=== PATIENT | male | born 1990 | race Asian ===

== ENCOUNTER 2016-12-18 12:12 | Emergency (ER) | payer OTHER ==
[~2016-12-18] VITALS: Ht 172.7 cm; Wt 54.7 kg
[2016-12-18 12:14] VITALS: TEMP 36.9; Ht 172.7 cm; Wt 54.7 kg
[2016-12-18 12:32] VITALS: O2SAT 98
[2016-12-18] MEDS ORDERED: METOCLOPRAMIDE HCL INJ 5 MG/ML 2 ML VIAL IV STA (13:29)
[2016-12-18] MEDS ORDERED: MoRPHine SULFATE 4 MG/ML 1 ML CARP\\VIAL IV ONE (13:30)
[2016-12-18] MEDS ORDERED: SODIUM CHLORIDE 0.9% 1000ML 1,000 ML IV ONE (13:30)
[2016-12-18] MEDS ORDERED: DICY20TA35 PO (13:35)
[2016-12-18] MEDS ORDERED: ONDA4TAB10 SL (13:35)
[2016-12-18 13:37] LABS: BASO % 0.3 %; BASO ABS # 0.02 K/uL (0-0.2); COMPLETE YES; EOS % 0.8 %; HEMATOCRIT 44.4 % (42-52); IG% 0.4 %; LYMPH % 16.9 %; LYMPH ABS # 1.35 K/uL (1.2-3.4); MEAN CELL VOLUME 87.2 fL (80-100); MEAN CORPUSCULAR HEMOGLOBIN 30.6 pg (25-34); MEAN CORPUSCULAR HGB CONC 35.1 g/dl (32-36); MONO % 24.2 %; NEUT % 57.4 %; PLATELET COUNT 321 K/uL (130-400); RED BLOOD COUNT 5.09 M/uL (4.7-6.1); WHITE BLOOD COUNT 7.99 K/uL (4.8-10.8)
[2016-12-18 13:44] LABS: BUN/CREATININE RATIO 10.7 (10-20); CALCIUM 9.1 mg/dl (8.5-10.1); POTASSIUM 3.6 mmol/L (3.5-5.1)
[2016-12-18 13:50] LABS: ALB/GLOB RATIO 0.8 (0.9-2)
--- NOTE | 2016-12-18 13:56 | DIAGNOSTIC IMAGING REPORT ---
CHEST ONE VIEW PORTABLE CLINICAL HISTORY: Chest pain, nausea and vomiting. COMPARISON STUDY: No previous studies for comparison. FINDINGS: Lung volumes are normal. Lungs are clear. There is no pneumothorax or pleural effusion. Cardiac size is normal. Mediastinal contours are normal. There is no evidence of pulmonary edema. No pneumomediastinum is identified. IMPRESSION: No acute cardiopulmonary findings. Electronically signed by: Messi Mcdaniel M.D. 12/18/2016 1:55 PM Dictated Date/Time: 12/18/2016 1:55 PM
[2016-12-18 15:36] LABS: URINE APPEARANCE CLEAR (CLEAR); URINE BILIRUBIN NEG (NEG); URINE COLOR YELLOW; URINE NITRITE NEG (NEG); URINE PH 6.5 (4.5-7.5); URINE SPECIFIC GRAVITY 1.002 (1.000-1.030); UROBILINOGEN NEG (NEG); ZZUR CULT IF INDIC CLEAN CATCH NO
[2016-12-18 15:40] LABS: MANUAL MICROSCOPIC REQUIRED? NO; REVIEW REQ? NO
[2016-12-18] MEDS ORDERED: OPTIRAY 320 IV PRN (15:45)
--- NOTE | 2016-12-18 16:16 | DIAGNOSTIC IMAGING REPORT ---
CT ABD/PELVIS IV AND ORAL CONT CLINICAL HISTORY: Lower abdominal pain, nausea, vomiting. COMPARISON STUDY: None. TECHNIQUE: Following the IV administration of 93 mL of Optiray-320, CT scan of the abdomen and pelvis was performed from the lung bases to the proximal femurs. Images are reviewed in the axial, sagittal, and coronal planes. IV contrast was administered without complication. CT DOSE: 251.96 mGycm FINDINGS: Lower chest: There are minimal right lower lobe tree-in-bud opacities, likely inflammatory. There are minor atelectatic changes in the right middle lobe and lingula. Liver: The contrast-enhanced liver is normal in size, contour, and attenuation. There is no intrahepatic biliary ductal dilatation. The hepatic veins and portal veins are patent. Gallbladder: Unremarkable. Spleen: Normal in size and attenuation. Pancreas: Unremarkable. Adrenal glands: Unremarkable. Kidneys: There is symmetric renal cortical enhancement. The kidneys are normal in size without hydronephrosis. Bowel: There are no transition zones indicate bowel obstruction. There is no evidence of acute diverticulitis. There are no findings to indicate acute appendicitis. Peritoneum: There is no intraperitoneal free air or abdominal ascites. Vasculature: The abdominal aorta is normal in course and caliber. Adenopathy: None. Pelvic viscera: The bladder, and pelvic viscera are unremarkable. Skeletal structures: No destructive osseous lesions are seen. IMPRESSION: 1. No acute intra-abdominal or pelvic findings 2. No evidence of bowel obstruction. No evidence of free air 3. No evidence of acute diverticulitis. No evidence of acute appendicitis. 4. Minimal tree-in-bud opacities within the right lower lobe, likely inflammatory Electronically signed by: Salty Acuña M.D. 12/18/2016 4:15 PM Dictated Date/Time: 12/18/2016 4:11 PM
[2016-12-18 17:14] VITALS: BP 134/78; PULSE 70; O2SAT 99
--- NOTE | 2016-12-18 23:54 | EMERGENCY ROOM VISIT NOTE ---
History First contact with patient: 13:20 Chief Complaint: ABDOMINAL PAIN Stated Complaint: N, ABD. PAIN, CHEST TIGHTNESS, HEART PAIN Nursing Triage Summary: woke up this morning feeling fine. when I started moving around I had left side chest pain "it seems to come and go" went to buy some cereal today got home ate some cereal and then vomitied due to pain in chest/upper abdomen. I also have been getting tired really quickly if I walk up my steps. History of Present Illness The patient is a 26 year old male who presents to the Emergency Room with complaints of nausea and vomiting for the past 3 days. The patient states that his symptoms started spontaneously, and evaluated one day before going to a local urgent care clinic. The patient was given an unknown nausea medicine, which does not appear to have helped his symptoms. He states that he has tried to eat cereal and drink fluids, but has had persistent vomiting. He reports epigastric and chest pain with the vomiting. He has had some escalating abdominal pain that was primarily in the left lower quadrant at the start of symptoms, and is now more distinct in the right lower quadrant. He does not have a history of abdominal surgery. No fever or chills. No shortness of breath. He has a decreased appetite has not been eating or drinking well. Review of Systems More than 10 systems were reviewed and otherwise negative with the exception of history of present illness. Past Medical/Surgical History Surgical Problems: (1) H/O wisdom tooth extraction Family History No significant family history Social History Smoking Status: Former Smoker Alcohol Use: none Marital Status: in relationship Housing Status: lives with significant other Occupation Status: employed Current/Historical Medications Scheduled Dicyclomine Hcl (Bentyl), 20 MG PO QID Scheduled PRN Ondasetron Odt (Zofran Odt), 4 MG SL Q8 PRN for Nausea Allergies Coded Allergies: No Known Allergies (Unverified , 02/24/16) Physical Exam Vital Signs Date Time Temp Pulse Resp B/P Pulse Ox O2 Delivery O2 Flow Rate FiO2 12/18/16 17:14 70 30 134/78 99 Room Air 12/18/16 15:15 78 11 126/76 100 Room Air 12/18/16 12:32 98 Room Air 12/18/16 12:30 79 12/18/16 12:28 78 16 127/97 100 Room Air 2/23/17 12:14 36.9 83 17 111/76 97 Room Air Physical Exam VITALS: Vitals are noted on the nurse's note and reviewed by myself. Vital signs stable. GENERAL: Well-developed, well-nourished, male, who is in no acute distress and resting comfortably. Patient is cooperative with the examination. HEAD: Normocephalic atraumatic. HEART: Regular rate and rhythm without murmurs gallops or rubs. LUNGS: Clear to auscultation bilaterally without wheezes, rales or rhonchi. No retractions or accessory muscle use. ABDOMEN: Positive normal bowel sounds x 4. Soft with generalized lower abdominal tenderness. No distinct point tenderness. No rebound or guarding. No CVA tenderness. Negative obturator and psoas. MUSCULOSKELETAL: No muscle atrophy, erythema, or edema noted. Full range of motion without joint tenderness in all extremities. NEURO: Patient was alert and oriented to person place and time. CN II through XII grossly intact. SKIN: The skin was without rashes, erythema, edema, or bruising. Capillary reflex less than 2 seconds. Medical Decision & Procedures ER Provider Diagnostic Interpretation: CHEST ONE VIEW PORTABLE CLINICAL HISTORY: Chest pain, nausea and vomiting. COMPARISON STUDY: No previous studies for comparison. FINDINGS: Lung volumes are normal. Lungs are clear. There is no pneumothorax or pleural effusion. Cardiac size is normal. Mediastinal contours are normal. There is no evidence of pulmonary edema. No pneumomediastinum is identified. IMPRESSION: No acute cardiopulmonary findings. CT ABD/PELVIS IV AND ORAL CONT CLINICAL HISTORY: Lower abdominal pain, nausea, vomiting. COMPARISON STUDY: None. TECHNIQUE: Following the IV administration of 93 mL of Optiray-320, CT scan of the abdomen and pelvis was performed from the lung bases to the proximal femurs. Images are reviewed in the axial, sagittal, and coronal planes. IV contrast was administered without complication. CT DOSE: 251.96 mGycm FINDINGS: Lower chest: There are minimal right lower lobe tree-in-bud opacities, likely inflammatory. There are minor atelectatic changes in the right middle lobe and lingula. Liver: The contrast-enhanced liver is normal in size, contour, and attenuation. There is no intrahepatic biliary ductal dilatation. The hepatic veins and portal veins are patent. Gallbladder: Unremarkable. Spleen: Normal in size and attenuation. Pancreas: Unremarkable. Adrenal glands: Unremarkable. Kidneys: There is symmetric renal cortical enhancement. The kidneys are normal in size without hydronephrosis. Bowel: There are no transition zones indicate bowel obstruction. There is no evidence of acute diverticulitis. There are no findings to indicate acute appendicitis. Peritoneum: There is no intraperitoneal free air or abdominal ascites. Vasculature: The abdominal aorta is normal in course and caliber. Adenopathy: None. Pelvic viscera: The bladder, and pelvic viscera are unremarkable. Skeletal structures: No destructive osseous lesions are seen. IMPRESSION: 1. No acute intra-abdominal or pelvic findings 2. No evidence of bowel obstruction. No evidence of free air 3. No evidence of acute diverticulitis. No evidence of acute appendicitis. 4. Minimal tree-in-bud opacities within the right lower lobe, likely inflammatory Laboratory Results 12/18/16 12:31 Red Blood Count 5.09, Mean Corpuscular Volume 87.2, Mean Corpuscular Hemoglobin 30.6, Mean Corpuscular Hemoglobin Concent 35.1, Mean Platelet Volume 10.0, Neutrophils (%) (Auto) 57.4, Lymphocytes (%) (Auto) 16.9, Monocytes (%) (Auto) 24.2, Eosinophils (%) (Auto) 0.8, Basophils (%) (Auto) 0.3, Neutrophils # (Auto ) 4.60, Lymphocytes # (Auto) 1.35, Monocytes # (Auto) 1.93, Eosinophils # (Auto ) 0.06, Basophils # (Auto) 0.02 12/18/16 12:31 Test 12/18/16 12:31 12/18/16 13:43 12/18/16 15:15 White Blood Count 7.99 K/uL (4.8-10.8) Red Blood Count 5.09 M/uL (4.7-6.1) Hemoglobin 15.6 g/dL (14.0-18.0) Hematocrit 44.4 % (42-52) Mean Corpuscular Volume 87.2 fL (80-100) Mean Corpuscular Hemoglobin 30.6 pg (25-34) Mean Corpuscular Hemoglobin Concent 35.1 g/dl (32-36) Platelet Count 321 K/uL (130-400) Mean Platelet Volume 10.0 fL (7.4-10.4) Neutrophils (%) (Auto) 57.4 % Lymphocytes (%) (Auto) 16.9 % Monocytes (%) (Auto) 24.2 % Eosinophils (%) (Auto) 0.8 % Basophils (%) (Auto) 0.3 % Neutrophils # (Auto) 4.60 K/uL (1.4-6.5) Lymphocytes # (Auto) 1.35 K/uL (1.2-3.4) Monocytes # (Auto) 1.93 K/uL (0.11-0.59) Eosinophils # (Auto) 0.06 K/uL (0-0.5) Basophils # (Auto) 0.02 K/uL (0-0.2) RDW Standard Deviation 39.7 fL (36.4-46.3) RDW Coefficient of Variation 12.4 % (11.5-14.5) Immature Granulocyte % (Auto) 0.4 % Immature Granulocyte # (Auto) 0.03 K/uL (0.00-0.02) Anion Gap 9.0 mmol/L (3-11) Est Creatinine Clear Calc Drug Dose 88.1 ml/min Estimated GFR () 121.6 Estimated GFR (Non- 104.9 BUN/Creatinine Ratio 10.7 (10-20) Calcium Level 9.1 mg/dl (8.5-10.1) Total Bilirubin 0.5 mg/dl (0.2-1) Aspartate Amino Transf (AST/SGOT) 33 U/L (15-37) Alanine Aminotransferase (ALT/SGPT) 22 U/L (12-78) Alkaline Phosphatase 74 U/L (45-117) Total Protein 8.3 gm/dl (6.4-8.2) Albumin 3.8 gm/dl (3.4-5.0) Globulin 4.5 gm/dl (2.5-4.0) Albumin/Globulin Ratio 0.8 (0.9-2) Lipase 186 U/L (73-393) Monoscreen NEG (NEG) Bedside Troponin I 0.000 ng/ml (0-0.045) Urine Color YELLOW Urine Appearance CLEAR (CLEAR) Urine pH 6.5 (4.5-7.5) Urine Specific [place] 1.002 (1.000-1.030) Urine Protein NEG (NEG) Urine Glucose (UA) NEG (NEG) Urine Ketones NEG (NEG) Urine Occult Blood NEG (NEG) Urine Nitrite NEG (NEG) Urine Bilirubin NEG (NEG) Urine Urobilinogen NEG (NEG) Urine Leukocyte Esterase NEG (NEG) Medications Administered Medications (Trade) Dose Ordered Sig/Bianca Route Start Time Stop Time Status Last Admin Dose Admin Sodium Chloride (Nss 1000ml) 1,000 ml @ 999 mls/hr Q1H1M ONCE IV 12/18/16 13:30 12/18/16 14:30 DC 12/18/16 13:30 999 MLS/HR Metoclopramide HCl (Reglan Inj) 10 mg NOW STAT IV 12/18/16 13:29 12/18/16 13:32 DC 12/18/16 13:48 10 MG ED Course Physical exam and history were performed. Nursing notes and EMR were reviewed. Patient appears to have generalized lower abdominal pain over the past several days. The patient does have some bilateral lower abdominal tenderness on palpation. He certainly does not appear toxic, but he is concerned for appendicitis. IV access was established and labs were obtained. Patient has been nauseated and was given Reglan here in the department. He was hydrated with normal saline. Because of his symptoms I did elect to perform a CT scan of his abdomen. The patient's blood work is as above and was reviewed. He does not have significantly elevated white blood cell count, anemia, bandemia, or gross electro-imbalance. Lipase and transaminases are nondiagnostic. The patient's CT scan does not show evidence of acute surgical abdomen or significant process. On reevaluation the patient continued to have a very slightly tender abdomen, but he is not with signs of peritonitis or worsening symptoms. Overall I do feel the patient's discomfort is likely related to a viral or foodborne illness. He should improve over the next few days without significant intervention. The patient does have nausea medicine at home, and she continue to take this. I recommended that he follow with [facility] or his PCP in the next few days for recheck of his condition. He was otherwise invited back to the ER with any new, worsening, or concerning symptoms. The chart was completed utilizing [employer] Voice Recognition Software. Grammatical errors, random word insertions, pronoun errors, and incomplete sentences are an occasional consequence of this system due to software limitations, ambient noise, and hardware issues. Any formal questions or concerns about the content, text, or information contained within the body of this dictation should be directly addressed to the provider for clarification. . Medical Decision Differential diagnosis: Etiologies such as appendicitis, diverticulitis, PUD, biliary pathology, UTI, pancreatitis, obstruction, mesenteric ischemia, aortic pathology, infections, inflammatory bowel disease, renal colic, as well as others were entertained. Impression Primary Impression: Right lower quadrant abdominal pain Departure Information Referrals No Doctor, Assigned (PCP) Patient Instructions [facility]
== END 2016-12-18 17:36 | disposition home or self-care (01) ==
LOC: C.EDB 12:14
DX: R10.31 Right lower quadrant pain (principal); R07.9 Chest pain, unspecified; R11.2 Nausea with vomiting, unspecified